=== PATIENT | male | born 1995 | race Caucasian/White ===

== ENCOUNTER → 2020-09-03 10:59 | Outpatient (REF) | payer OTHER, SELFPAY | LOC: HO.SL 10:59 | PROVIDERS: PCP Internal Medicine; Visit Provider Internal Medicine | DX: R40.0 Somnolence (principal) | CPT/HCPCS: 95806 ==

== ENCOUNTER 2023-11-22 17:06 | Outpatient (AMB) | payer OTHER, SELFPAY ==
--- NOTE | 2023-11-22 17:15 | A.OFFPC_ITS ---
Vital Signs 11/22/23 17:20 Height 5 ft 9 in Weight 247 lb 2 oz BMI 36.5 BP 138/86 Blood Pressure Location Lt brachial Position Sitting Pulse 102 H Pulse Source Pulse Oximeter Pulse Oximetry (%) 96 Oxygen Delivery Method Room Air Intake Visit Reasons: Annual PE Lead Bi Developer Required: No Accompanied by: Self / Same As Patient Allergies No Known Allergies Allergy (Verified 11/22/23 17:23) Medication List - Last Reconciled 11/22/23 by Dean Bonilla MD albuterol sulfate 90 mcg/actuation 2 puffs PO Q6H PRN Flovent HFA 110 mcg/actuation (fluticasone propionate) 2 puffs inhalation BID NS Tobacco use date assessed: 11/22/23 Dental Screening Dental Screen Date: 11/22/23 Did you have a dental visit in the last 12 months?: No Did you have a dental problem in the last 6 months where you did not have access to dental care?: No Was dental information given to patient?: Yes HPI Annual PE HPI Details Patient comes in today for his annual physical examination - was last seen here on 01/18/2022 He appears to have gained a lot of weight (about 20 pounds) since he was last here Patient states that he has been experiencing on and off vague epigastric pains and cramping for a while now Notes that his stomach symptoms would usually occur around 10 am in the morning and would gradually subside shortly after lunch He also seems to notice that his stomach tends to act up more often when he is eating some gluten-rich foods - is wondering if his stomach symptoms may be due to some gluten sensitivity or just due to stress, as he admits to experiencing a lot of stress at work lately Adds that he still feels fatigued often throughout the day and notes that he often wakes up in the morning not feeling refreshed from his sleep States that he can fall asleep very easily as soon as he lies down on his bed but does not think he is getting the quality sleep that one should be getting from a good night's sleep He tends to snore heavily when sleeping at night but that could just be due to his prominent adenoids/tonsils, which he's had all of his life He did have a home sleep study done back in 2020 that revealed very mild RHYS but only in the supine position He is also wondering if low testosterone might be contributing to his symptoms of fatigue and would like to try to find some answers so he can start working on getting to feeling better He denies any headaches or dizziness Denies any chest pains, no SOB - states that his asthma is well-controlled on his current inhalers No nausea/vomiting, no abdominal pain No change in bowel habits noted He denies any acute urinary symptoms PFSH Medical History (Updated 11/22/23 @ 19:38 by Dean Bonilla MD) Enlarged tonsils and adenoids Sleep disorder Obesity (BMI 30-39.9) Daytime somnolence Fatigue Asthma Surgical History No significant past surgical history Family History Father Asthma Brother Asthma Social History Housing: Apartment Alcohol intake: current Alcohol intake frequency: holidays/special occasions only Alcohol type: wine Patient Tobacco Use Status: Former Tobacco user e-Cigarette/Vaping Use: Never Used Second Hand Smoke Exposure: Yes service: No Current occupational status: employed Cognitive needs: No Hearing needs: No Vision needs: No Questionnaire PHQ-9 Over the last 2 weeks, how often have you been bothered by any of the following problems? 1. Little interest or pleasure in doing things: not at all 2. Feeling down, depressed, or hopeless: not at all 3. Trouble falling or staying asleep, or sleeping too much: not at all 4. Feeling tired or having little energy: not at all 5. Poor appetite or overeating: not at all 6. Feeling bad about yourself - or that you are a failure or have let yourself or your family down: not at all 7. Trouble concentrating on things, such as reading the newspaper or watching television: not at all 8. Moving or speaking so slowly that other people could have noticed. Or the opposite - being so fidgety or restless that you have been moving around a lot more than usual: not at all 9. Thoughts that you would be better off or of hurting yourself in some way: not at all Total score: 0 Depression Screening Interpretation: Negative Depression Screening Done: Yes 78484 - PHQ-9 Billing: Yes Source: Developed by Drs. Jaime Franco, Margret Centeno, Jalen Pandey and colleagues, with an educational arianna from [employer]. Thrive Questionnaire Date Thrive assessed: 11/22/23 I am a: Patient What is your living situation today?: I have a steady place to live Within the past 12 months, did the food you bought not last and you didn't have the money to get more?: Never true Within the past 12 months, did you worry whether your food would run out before you got money to buy more?: Never true Do you have trouble paying for medicines?: No Do you have trouble getting transportation to medical appointments?: No Do you have trouble paying your heating and electricity bill?: No Do you have trouble taking care of your child, family member or friend?: No Do you have trouble with day-to-day activities such as bathing, preparing meals, shopping, managing finances, etc.?: No Are you currently unemployed and looking for a job?: No Are you interested in more education?: No Please select the resources that you would like help with: None Currently or been in a relationship where the following occur: No concerns reported THRIVE Score: 0 AUDIT C Alcohol Use Questionnaire (AUDIT-C) 1. How often do you have a drink containing alcohol?: Monthly or less 2. How many drinks containing alcohol do you have on a typical day when you are drinking?: 1 or 2 3. How often do you have six or more drinks on one occasion?: Never Total Score: 1 Score Reviewed/Action Taken: Yes ISABELLA-7 AMB Questionnaire ISABELLA-7 Date ISABELLA - 7 assessed: 11/22/23 Feeling nervous, anxious, or on edge: 0 = Not at all Not being able to stop or control worryin = Not at all Worrying too much about different things: 0 = Not at all Trouble relaxin = Not at all Being so restless that it is hard to sit still: 0 = Not at all Becoming easily annoyed or irritable: 0 = Not at all Feeling afraid as if something awful might happen: 0 = Not at all Total ISABELLA-7 score (0-4 normal; 5-9 mild; 10-14 moderate; 15-21 severe): 0 Source: Developed by Drs. Jaime Franco, Margret Centeno, Jalen Pandey and colleagues, with an educational arianna from [employer]. ISABELLA-7 Assessment Billing ISABELLA-7 Assessment Tool: ISABELLA-7 Assessment 02301 Review of Systems Const Denies chills, Reports daytime sleepiness, Reports fatigue, Denies fever(s), Denies headache(s), Denies malaise and Denies weakness Eyes Denies blurry vision, Denies change in vision, Denies irritation and Denies itchy eyes ENT Denies dysphagia, Denies dizziness, Denies otalgia, Denies headache(s), Denies nasal congestion, Denies neck pain, Denies odynophagia and Denies sore throat Card Denies chest pain, Denies rapid heart rate, Denies irregular heart rhythm, Denies palpitations and Denies dyspnea Resp Denies chest congestion, Denies cough, Denies dyspnea and Denies wheezing GI Reports abdominal pain (on and off epigastric cramping/pain - see HPI), Denies bloating, Denies constipation, Denies dysphagia, Denies heartburn, Denies diarrhea, Denies nausea, Denies odynophagia and Denies vomiting Denies hematuria, Denies difficulty urinating, Denies dysuria, Denies urinary frequency and Denies urinary urgency Musc Denies back pain, Denies arthralgias, Denies joint swelling, Denies muscle w eakness and Denies neck pain Skin/Breast Denies change in pigmentation, Denies lesions, Denies rash and Denies unusual bruising Neuro Denies dizziness, Denies headache(s), Denies paresthesias and Denies weakness Psych Reports anxiety and Denies depression Endo Reports fatigue and Denies palpitations Aller/Immun Denies itchy eyes and Denies wheezing Physical exam (Primary Care) Vital Signs: Last Vital Signs Pulse 102 H 11/22/23 17:20 BP 138/86 11/22/23 17:20 Pulse Ox 96 11/22/23 17:20 Oxygen Delivery Method Room Air 11/22/23 17:20 BMI result Body Mass Index 36.5 Tobacco/Smoking Status: Tobacco use Status Tobacco use date assessed 11/22/23 11/22/23 17:20 Patient Tobacco Use Status Former Tobacco user 11/22/23 17:17 e-Cigarette/Vaping Use Never Used 11/22/23 17:20 PHQ-9: PHQ-9 Score PHQ-9: Total score 0 11/22/23 17:28 Depression Screening Interpretation: Negative Thrive Assessment: Date of Thrive Assessment Date Thrive assessed 11/22/23 11/22/23 17:20 Currently or been in a relationship where the following occur: No concerns reported Const General: no acute distress, alert and awake Orientation/consciousness: patient oriented x3 HENMT Head: Yes normocephalic and Yes atraumatic Ears: external ears normal, TM's normal bilaterally and EAC's normal General nose exam: No nasal discharge present Face and sinus: Yes normal facial exam and Yes sinuses nontender Teeth and gingiva: dentition normal Throat: Yes posterior oropharynx normal and Yes abnormal tonsil ((+) bilaterally enlarged tonsils and adenoids) Eyes Eyelids: Yes eyelids normal Conjunctivae: conjunctivae normal Pupils: Equal, round and reactive pupils present EOM: EOMs intact bilaterally Neck Neck: Yes no lymphadenopathy and Yes supple Thyroid: Thyroid normal Resp Auscultation: clear to auscultation bilaterally, no rales and no wheezes Cardio Rate: regular rate Rhythm: regular rhythm Heart sounds: no murmurs GI Palpation (GI): Soft to palpation, nontender and No hepatosplenomegaly present Auscultation: normal bowel sounds General: Yes no CVA tenderness Back/Spine/Pelvis Back: no CVA tenderness Thoracic/Lumbar Spine: thoracic and lumbar spine normal to inspection Skin Lesions: no lesions Rashes: no rashes Neuro General: patient oriented x3, moves all extremities, no focal motor deficits and CN's II-XI intact bilaterally Cranial nerves: Yes Equal, round and reactive pupils present Cognition (Neuro): normal cognition Gait exam (Neuro): Normal gait present Extrem General: Yes no clubbing, cyanosis or edema Assessment and Plan Assessment & Plan (1) Annual physical exam: Code(s): Z00.00 - Encounter for general adult medical examination without abnormal findings Plan: Check labs (2) Enlarged tonsils and adenoids: Code(s): J35.3 - Hypertrophy of tonsils with hypertrophy of adenoids Plan: This is a chronic issue for him and advised that this may likely be the main reason for his heavy snoring when he is sleeping but does not necessarily mean he has to have his tonsils removed (especially since he is technically asymptomatic) until we can prove that this is contributing to any abnormal sleeping issues (3) Abdominal pain: Code(s): R10.9 - Unspecified abdominal pain Qualifiers: Abdominal location: epigastric Qualified Code(s): R10.13 - Epigastric pain Plan: Advised that this could be due to stress/anxiety (as he was suspecting) or other reasons, including hyperacidity, IBS or even food sensitivities like gluten (also as he was suspecting) Will send him for some labs KANDIS for further evaluation If his labs are unrevealing, will then consider trial of H2 blockers or PPIs to see if these will relieve his abdominal symptoms (4) Asthma: Code(s): J45.909 - Unspecified asthma, uncomplicated Qualifiers: Asthma severity: moderate Asthma persistence: persistent Asthma complication type: uncomplicated Qualified Code(s): J45.40 - Moderate persistent asthma, uncomplicated Plan: Stable - continue Flovent HFA 110 mcg 2 inhalations BID and Albuterol HFA 1 to 2 inhalations Q 6 hours PRN (5) Fatigue: Code(s): R53.83 - Other fatigue Qualifiers: Fatigue type: chronic, unspecified Qualified Code(s): R53.82 - Chronic fatigue, unspecified Plan: He had a home sleep study done in 2020 that came out with mild RHYS only in the supine position He continues to experience increased fatigue often as well as c/o frequent daytime somnolence and would really like to find out what is causing his symptoms Will refer him to Sleep Medicine this time for further evaluation of his symptoms (6) Obesity (BMI 30-39.9): Code(s): E66.9 - Obesity, unspecified Plan: Reinforced diet/exercise as tolerated/lose weight Plan To return in 1 year for his next annual physical examination Orders: Orders Comprehensive Dime Box. Panel Fast Today E78.00 - Pure hypercholesterolemia, unspecified, Z00.00 - Encounter for general adult medical examination without abnormal findings Lipid Panel Today E78.00 - Pure hypercholesterolemia, unspecified, Z00.00 - Encounter for general adult medical examination without abnormal findings UA CC w/rflx Micro + Cult Today R30.0 - Dysuria, Z00.00 - Encounter for general adult medical examination without abnormal findings Vitamin D 25-OH Total Today E55.9 - Vitamin D deficiency, unspecified, Z00.00 - Encounter for general adult medical examination without abnormal findings Transglutaminase IgA Today R10.9 - Unspecified abdominal pain Complete Blood Count Auto Diff Today D64.9 - Anemia, unspecified, Z00.00 - Encounter for general adult medical examination without abnormal findings TSH reflex Free T4 Today E78.00 - Pure hypercholesterolemia, unspecified, Z00.00 - Encounter for general adult medical examination without abnormal findings Testosterone, Free/Total Today R79.89 - Other specified abnormal findings of blood chemistry, Z00.00 - Encounter for general adult medical examination without abnormal findings Transglutaminase Ab IgG Today R10.9 - Unspecified abdominal pain Referrals Sleep Medicine Referral R06.83 - Snoring, R40.0 - Somnolence, R53.83 - Other fatigue Coding Level of Care Code Est Pt Prev Care 18-39y([id number]) Diagnoses Annual physical exam Z00.00 Enlarged tonsils and adenoids J35.3 Epigastric pain R10.13 Abdominal location: epigastric Moderate persistent asthma without complication J45.40 Asthma severity: moderate Asthma persistence: persistent Asthma complication type: uncomplicated Chronic fatigue R53.82 Fatigue type: chronic, unspecified Obesity (BMI 30-39.9) E66.9 Additional Codes ISABELLA-7 Assessment Billing - ISABELLA-7 Assessment Tool: ISABELLA-7 Assessment 36881 ([id number])
[2023-11-22 17:20] VITALS: BP 138/86; PULSE 102; O2SAT 96; BMI 36.5
== END 2023-11-22 17:43 | disposition home or self-care (01) ==
PROVIDERS: PCP Internal Medicine; Visit Provider Internal Medicine
DX: Z00.00 Encounter for general adult medical examination without abnormal findings (principal); E66.9 Obesity, unspecified; Z68.36 Body mass index [BMI] 36.0-36.9, adult; J35.3 Hypertrophy of tonsils with hypertrophy of adenoids; R10.13 Epigastric pain; J45.40 Moderate persistent asthma, uncomplicated; R53.82 Chronic fatigue, unspecified
CPT/HCPCS: 99395